=== PATIENT | male | born 1940 | race Caucasian/White ===

== ENCOUNTER 2020-06-22 06:20 | Day surgery (SDC) | payer MEDICARE ==
[~2020-06-22] VITALS: Ht 168.9 cm; Wt 71.4 kg
[2020-06-22] MEDS ORDERED: SODIUM CHLORIDE 0.9% 1,000 ML IV SCH (07:00)
[2020-06-22 07:02] VITALS: BP 143/93
[2020-06-22] MEDS ORDERED: ATOR20TA PO (07:12)
[2020-06-22] MEDS ORDERED: RIVA20TA PO (07:12)
[2020-06-22] MEDS ORDERED: METO-93 PO (07:12)
[2020-06-22 07:22] LABS: BASOPHILS % (AUTO) 1 % (0-1); EOSINOPHILS % (AUTO) 1 % (1-7); LYMPHOCYTES % (AUTO) 27 % (22-44); MEAN CORPUSCULAR HEMOGLOBIN 29.8 pg (27.5-34.5); MEAN CORPUSCULAR HGB CONC 32.7 g/dL (33.2-36.2); MEAN PLATELET VOLUME 7.5 fL (7.4-10.4); MONOCYTES % (AUTO) 11 % (2-9); NEUTROPHILS % (AUTO) 61 % (42-75); PLATELET COUNT 263 x10^3/uL (130-400); RED CELL DISTRIBUTION WIDTH 14.2 % (9.4-14.8)
[2020-06-22 07:23] LABS: MD NO
[2020-06-22 07:30] LABS: ANION GAP 6 mmol/L (5-15); CALCIUM 9.3 mg/dL (8.5-10.1); CHLORIDE 106 mmol/L (98-107); CREATININE 1.26 mg/dL (0.7-1.3)
[2020-06-22] MEDS ORDERED: FENTANYL PF 100 MCG/2ML ONE (07:50)
[2020-06-22] MEDS ORDERED: CEFAZOLIN PMX 1GM/50ML 50 ML ONE ×2 (07:50→08:25)
[2020-06-22] MEDS ORDERED: LIDOCAINE 2%, 20ML ONE ×2 (07:50→08:14)
[2020-06-22] MEDS ORDERED: MIDAZOLAM 1 MG/ML, 5ML ONE (07:50)
[2020-06-22] MEDS ORDERED: CEFAZOLIN 1,000 MG ONE (07:50)
== END 2020-06-22 10:12 | disposition home or self-care (01) ==
LOC: CACL 06:20
PROVIDERS: ATTEND Internal Medicine Clinical Cardiac Electrophysiology
DX: Z45.010 Encounter for checking and testing of cardiac pacemaker pulse generator [battery] (principal); I10 Essential (primary) hypertension; E78.5 Hyperlipidemia, unspecified; E11.9 Type 2 diabetes mellitus without complications; I48.20 Chronic atrial fibrillation, unspecified; E78.00 Pure hypercholesterolemia, unspecified; Z87.891 Personal history of nicotine dependence; Z79.899 Other long term (current) drug therapy; Z79.01 Long term (current) use of anticoagulants; Z98.890 Other specified postprocedural states
CPT/HCPCS: 33228; 36415; 80048; 85025; 99156; C1785; J0690; J2250; J3010; 33208; 99157

== ENCOUNTER 2020-10-12 14:26 | Observation (INO) | payer MEDICARE ==
[~2020-10-12] VITALS: Ht 170.2 cm; Wt 75.7 kg
[~2020-10-12 14:26] MED LIST: ATOR20TA PO; METO-93 PO; RIVA20TA PO
[2020-10-12 16:28] LABS: BASOPHILS % (AUTO) 1 % (0-1); EOSINOPHILS % (AUTO) 1 % (1-7); LYMPHOCYTES % (AUTO) 18 % (22-44); MEAN CORPUSCULAR HEMOGLOBIN 29.9 pg (27.5-34.5); MEAN CORPUSCULAR HGB CONC 32.7 g/dL (33.2-36.2); MEAN PLATELET VOLUME 7.7 fL (7.4-10.4); MONOCYTES % (AUTO) 15 % (2-9); NEUTROPHILS % (AUTO) 65 % (42-75); PLATELET COUNT 254 x10^3/uL (130-400); RED BLOOD COUNT 4.75 x10^6/uL (4.38-5.82); RED CELL DISTRIBUTION WIDTH 14.1 % (9.4-14.8)
[2020-10-12 16:35] LABS: ALANINE AMINOTRANSFERASE 23 U/L (12-78); ALBUMIN 2.8 g/dL (3.4-5.0); ANION GAP 6 mmol/L (5-15); CALCIUM 8.7 mg/dL (8.5-10.1); CHLORIDE 107 mmol/L (98-107); CREATININE 1.15 mg/dL (0.7-1.3)
[2020-10-12 16:38] LABS: ALKALINE PHOSPHATASE 68 U/L (45-117); BILIRUBIN,TOTAL 0.7 mg/dL (0.2-1.0); TOTAL PROTEIN 6.7 g/dL (6.4-8.2)
--- NOTE | 2020-10-12 16:55 | NUR ---
pt with family at bedside, out to ct with tech as transporter, taken via gurney with no signs or symptoms of acute distress noted respirations even and unlabored
[2020-10-12 17:19] LABS: MD SCAN
--- NOTE | 2020-10-12 17:21 | NUR ---
pt bcak from imaging no signs or symptoms of acute distress noted respirations even and unlabored
[2020-10-12 18:01] LABS: MICROSCOPIC INDICATED
[2020-10-12] MEDS ORDERED: CEFTRIAXONE PMX 1GM/50ML 50 ML IVPB ONE (18:30)
[2020-10-12] MEDS ORDERED: SODIUM CHLORIDE 0.9% 1,000ML IVBOLUS ONE (18:30)
[2020-10-12] MEDS ORDERED: LABETALOL 5MG/ML, 20ML IVPush PRN (19:00)
[2020-10-12] MEDS ORDERED: ONDANSETRON 2MG/ML, 2ML IVPush PRN (19:00)
[2020-10-12] MEDS ORDERED: morphine SULFATE 10 MG/ML, 1ML IVPush PRN (19:00)
[2020-10-12] MEDS ORDERED: HYDROcodone/APAP 5/325 TABLET PO PRN (19:00)
[2020-10-12] MEDS ORDERED: ACETAMINOPHEN 325 MG TABLET PO PRN (19:00)
[2020-10-12] MEDS ORDERED: BACLOFEN 10 MG TABLET PO PRN (19:00)
[2020-10-12] MEDS ORDERED: CEFTRIAXONE PMX 1GM/50ML 50 ML ONE (19:02)
[2020-10-12] MEDS ORDERED: RIVAROXABAN 20 MG TABLET ONE (20:04)
[2020-10-12 20:19] VITALS: BP 158/95
[2020-10-12] MEDS: ATORVASTATIN 20 MG TABLET PO SCH (21:02)
[2020-10-12] MEDS: SODIUM CHLORIDE 0.9% 1,000 ML IV SCH (21:02)
[2020-10-12] MEDS: RIVAROXABAN 20 MG TABLET PO SCH (22:41)
[2020-10-12 22:57] VITALS: BP 153/75
[2020-10-13 01:24] VITALS: BP 135/78
[2020-10-13 05:54] LABS: BASOPHILS % (AUTO) 0 % (0-1); EOSINOPHILS % (AUTO) 1 % (1-7); LYMPHOCYTES % (AUTO) 21 % (22-44); MEAN CORPUSCULAR HEMOGLOBIN 30.5 pg (27.5-34.5); MEAN CORPUSCULAR HGB CONC 33.1 g/dL (33.2-36.2); MONOCYTES % (AUTO) 14 % (2-9); NEUTROPHILS % (AUTO) 65 % (42-75); PLATELET COUNT 269 x10^3/uL (130-400); RED BLOOD COUNT 4.62 x10^6/uL (4.38-5.82); RED CELL DISTRIBUTION WIDTH 14.1 % (9.4-14.8)
[2020-10-13 06:03] LABS: CHLORIDE 106 mmol/L (98-107)
[2020-10-13 06:16] LABS: MD NO
[2020-10-13 06:19] LABS: ALANINE AMINOTRANSFERASE 21 U/L (12-78); ALBUMIN 2.6 g/dL (3.4-5.0); ALKALINE PHOSPHATASE 56 U/L (45-117); ANION GAP 9 mmol/L (5-15); BILIRUBIN,TOTAL 1.2 mg/dL (0.2-1.0); CALCIUM 8.5 mg/dL (8.5-10.1); CREATININE 0.93 mg/dL (0.7-1.3); TOTAL PROTEIN 6.4 g/dL (6.4-8.2)
[2020-10-13] MEDS ORDERED: MAGNESIUM SULFATE PMX 2GM/50ML 50 ML IV ONE (07:00)
[2020-10-13] MEDS: SODIUM CHLORIDE 0.9% 1,000 ML IV SCH (07:07)
[2020-10-13 07:46] VITALS: BP 146/84
[2020-10-13] MEDS: METOPROLOL SUCCINATE 50 MG TAB.ER.24H PO SCH (09:59)
[2020-10-13] MEDS: TAMSULOSIN 0.4 MG CAP.ER.24H PO SCH (09:59)
[2020-10-13] MEDS ORDERED: OMNIPAQUE 350 MG/ML, 100ML BOTTLE ONE (10:40)
[2020-10-13 14:20] VITALS: BP 131/83
[2020-10-13] MEDS: CYCLOBENZAPRINE 10 MG TABLET PO SCH ×2 (16:54→20:27)
[2020-10-13] MEDS: CEFTRIAXONE PMX 1GM/50ML 50 ML IV SCH (16:54)
[2020-10-13 20:15] VITALS: BP 146/82
[2020-10-13] MEDS: ATORVASTATIN 20 MG TABLET PO SCH (20:27)
[2020-10-13] MEDS: RIVAROXABAN 20 MG TABLET PO SCH (20:27)
[2020-10-14 01:43] VITALS: BP 140/92
[2020-10-14] MEDS: SODIUM CHLORIDE 0.9% 1,000 ML IV SCH ×2 (01:47→11:00)
[2020-10-14 08:01] VITALS: BP 149/87
[2020-10-14] MEDS: CYCLOBENZAPRINE 10 MG TABLET PO SCH ×2 (08:06→15:51)
[2020-10-14] MEDS: METOPROLOL SUCCINATE 50 MG TAB.ER.24H PO SCH (08:06)
[2020-10-14] MEDS: TAMSULOSIN 0.4 MG CAP.ER.24H PO SCH (08:06)
[2020-10-14] MEDS: PHENAZOPYRIDINE 100 MG TABLET PO SCH ×2 (09:24→15:51)
[2020-10-14 11:23] LABS: BASOPHILS % (AUTO) 1 % (0-1); EOSINOPHILS % (AUTO) 1 % (1-7); LYMPHOCYTES % (AUTO) 19 % (22-44); MEAN CORPUSCULAR HEMOGLOBIN 30.8 pg (27.5-34.5); MEAN CORPUSCULAR HGB CONC 33.5 g/dL (33.2-36.2); MEAN PLATELET VOLUME 7.3 fL (7.4-10.4); MONOCYTES % (AUTO) 14 % (2-9); NEUTROPHILS % (AUTO) 65 % (42-75); PLATELET COUNT 290 x10^3/uL (130-400); RED BLOOD COUNT 4.88 x10^6/uL (4.38-5.82); RED CELL DISTRIBUTION WIDTH 14.1 % (9.4-14.8)
[2020-10-14 11:29] LABS: ALANINE AMINOTRANSFERASE 23 U/L (12-78); ANION GAP 7 mmol/L (5-15); CALCIUM 9.2 mg/dL (8.5-10.1); CHLORIDE 105 mmol/L (98-107)
[2020-10-14 11:31] LABS: ALKALINE PHOSPHATASE 63 U/L (45-117); BILIRUBIN,TOTAL 0.8 mg/dL (0.2-1.0); TOTAL PROTEIN 7.4 g/dL (6.4-8.2)
[2020-10-14 11:49] LABS: MD SCAN
[2020-10-14 12:36] VITALS: BP 135/80
[2020-10-14] MEDS ORDERED: TAMS-11 PO (13:48)
[2020-10-14] MEDS ORDERED: CYCL10TA2 PO (13:48)
[2020-10-14] MEDS ORDERED: PHEN-582 PO (13:48)
[2020-10-14] MEDS ORDERED: FINA5TAB4 PO (14:04)
[2020-10-14] MEDS ORDERED: HYDR-1067 PO (14:06)
[2020-10-14] MEDS ORDERED: SULF1TAB24 PO (14:09)
[2020-10-14] MEDS: CEFTRIAXONE PMX 1GM/50ML 50 ML IV SCH (15:17)
== END 2020-10-14 17:10 | disposition home health service (06) ==
LOC: ED 18:40 → INTOOBSV 18:54 → EDIP 18:54 → 4EST 20:03
PROVIDERS: ADMIT Internal Medicine; ATTEND Hospitalist
DX: A41.9 Sepsis, unspecified organism (principal); N39.0 Urinary tract infection, site not specified; D72.829 Elevated white blood cell count, unspecified; R00.0 Tachycardia, unspecified; N40.1 Benign prostatic hyperplasia with lower urinary tract symptoms; N12 Tubulo-interstitial nephritis, not specified as acute or chronic; M51.36 Other intervertebral disc degeneration, lumbar region; R33.9 Retention of urine, unspecified; I48.91 Unspecified atrial fibrillation; R73.03 Prediabetes; E78.5 Hyperlipidemia, unspecified; Z79.01 Long term (current) use of anticoagulants; Z95.0 Presence of cardiac pacemaker; Z79.899 Other long term (current) drug therapy
CPT/HCPCS: 36415; 72131; 74178; 80053; 81001; 83605; 83735; 84100; 84145; 84443; 85025; 87040; 87077; 87086; 87186; 96361; 96365; 96366; 96367; 97162; 97530; 99285; G0378; J0696; J3475; J7030; Q9967; 96374